=== PATIENT | male | born 1980 | race Caucasian/White ===

== ENCOUNTER 2018-06-06 12:57 | Outpatient (CLI) | payer BC ==
--- NOTE | 2018-06-06 13:23 | RAD ---
SEVEN VIEWS OF THE CERVICAL SPINE: Comparison: None. History: Paraesthesia and severe neck pain. FINDINGS: AP, lateral, oblique, open mouth odontoid, swimmer's and flexion/extension views of the cervical spin e were performed. The vertebral bodies and intervertebral discs demonstrate normal height and alignment without fractur e or subluxation. No degenerative changes are seen. No prevertebral soft tissue swelling is present. No neural foraminal stenosis is seen on the oblique images. Alignment is unchanged with flexion and e xtension. IMPRESSION: Unremarkable exam. POS: [facility]
== END 2018-06-06 12:58 | disposition home or self-care (01) ==
LOC: SCSRAD 12:57
PROVIDERS: ATTEND Family Medicine
DX: R20.2 Paresthesia of skin (principal)
CPT/HCPCS: 36415; 72052; 80053; 80061; 84443; 85025

== ENCOUNTER 2018-07-25 12:16 | Outpatient (CLI) | payer BC ==
--- NOTE | 2018-07-25 15:05 | MRI ---
MRI OF THE CERVICAL SPINE WITHOUT CONTRAST: Comparison: None. History: Neck pain and numbness down the left arm to the fingers for months. Left sided paraesthesia. Technique: Multiplanar, multisequence MRI images were obtained of the cervical spine without contrast . FINDINGS: The vertebral bodies and intervertebral discs demonstrate normal height and alignment without fractur e or subluxation. No marrow signal abnormality is present. The visualized cord demonstrates normal signal throughout. The craniocervical junction is unremarkabl e. The prevertebral and paraspinal soft tissues are unremarkable. C2-3: Unremarkable. C3-4: A minimal generalized concentric disc bulge is seen. No posterior facet arthrosis. No significa nt central canal or neuroforaminal stenosis. C4-5: Unremarkable. C5-6: A minimal generalized concentric disc bulge is seen. No posterior facet arthrosis. Mild central canal stenosis. Mild bilateral neuroforaminal stenosis. C6-7: A minimal generalized concentric disc bulge is seen. No posterior facet arthrosis. No posterior facet arthrosis. No neuroforaminal or central canal stenosis. C7-T1: Unremarkable. IMPRESSION: Mild degenerative changes of the cervical spine as above. POS: [facility]
== END 2018-07-25 12:17 | disposition home or self-care (01) ==
LOC: SCSMRI 12:16
PROVIDERS: ATTEND Family Medicine
DX: M54.2 Cervicalgia (principal); G56.00 Carpal tunnel syndrome, unspecified upper limb; R20.2 Paresthesia of skin; M47.892 Other spondylosis, cervical region
CPT/HCPCS: 72141